=== PATIENT | female | born 1950 | race Caucasian/White ===

== ENCOUNTER 2025-05-09 12:41 | Inpatient (IN) | payer OTHER, MEDICAID ==
[~2025-05-09] VITALS: Ht 167.6 cm; Wt 66.2 kg
--- NOTE | 2025-05-09 13:38 | ED.PDOC ---
History of Present Illness HPI Comments 74 year old female presents to the ED with a chief complaint of pacemaker malfunction onset today (05/09/25). Patient's daughter states she was told by hospice nurse, recommended to bring patient to ED for pacemaker check, HR has been in the 40s. Initially HR was 49 about 5 days ago, today was 40. Patient cu rrently has no complaints. PMHx thyroid disease, pacemaker. Denies fever, chills, nausea, vomiting, diarrhea, chest pain, shortness of breath, dysuria, hematuria. No other symptoms or modifying factors present at this time. Chief Complaint: Abnormal LAB's Time Seen by MD: 13:20 Reviewed Notes: Medications, Allergies Allergies: Coded Allergies: Propoxyphene (Verified Allergy, Unknown, 05/09/25) Information Source: Patient, Relative Mode of Arrival: Wheelchair Severity: Moderate Timing: Days Duration: Since onset Prehospital treatment: None Past Medical History PAST MEDICAL HISTORY: Thyroid Surgical History: Pacemaker MEDICAL DELIVERY TECHNICIAN History: No Pertinent MEDICAL DELIVERY TECHNICIAN History Family History Family History: Unknown Social History Smoker: Non-Smoker Alcohol: Denies ETOH Use Drugs: Denies Drug Use Lives In: Home Constitutional: denies: chills, diaphoresis, fatigue, fever, malaise, sweats, weakness, others EENTM: denies: blurred vision, double vision, ear bleeding, ear discharge, ear drainage, ear pain, ear ringing, eye pain, eye redness, hearing loss, mouth pa in, mouth swelling, nasal discharge, nose bleeding, nose congestion, nose pain, photophobia, tearing, throat pain, throat swelling, voice changes, others Respiratory: denies: cough, hemoptysis, orthopnea, SOB at rest, shortness of breath, SOB with excertion, stridor, wheezing, others Cardiovascular: reports: others (bradycardiac, pacemaker malfunction); denies: chest pain, dizzy spells, diaphoresis, Dyspnea on exertion, edema, irregular heart beat, left arm pain, lightheadedness, palpitations, PND, syncope Gastrointestinal: denies: abdomen distended, abdominal pain, blood streaked bowels, constipated, diarrhea, dysphagia, difficulty swallowing, hematemesis, melena, nausea, poor appetite, poor fluid intake, rectal bleeding, rectal pain, vomiting, others Genitourinary: denies: abnormal vagina bleeding, burning, dyspareunia, dysuria, flank pain, frequency, hematuria, incontinence, pain, , vagina d ischarge, urgency, others Neurological: denies: dizziness, fainting, headache, left sided numbness, left sided weakness, numbness, paresthesia, pre-existing deficit, right sided numbness, right sided weakness, seizure, speech problems, tingling, tremors, weakness, others Musculoskeletal: denies: back pain, gout, joint pain, joint swelling, muscle pain, muscle stiffness, neck pain, others Integumetry: denies: bruises, change in color, change in hair/nails, dryness, laceration, lesions, lumps, rash, wounds, others Allergic/Immunocompromised: denies: Difficulty Healing, Frequent Infections, Hives, Itching, others Hematologic/Lymphatic: denies: anemia, blood clots, easy bleeding, easy bruising, swollen glands, others Endocrine: denies: excessive hunger, excessive sweating, excessive thirst, excessive urination, flushing, intolerance to cold, intolerance to heat, unexplained weight gain, unexplained weight loss, others Psychiatric: denies: anxiety, bipolar disorder, depression, hopeless, panic disorder, schizophrenia, sleepless, suicidal, others All Other Systems: Reviewed and Negative Physical Exam General Appearance: Other (chroniclly ill appearing) HEENT: Normal ENT Inspection, Pharynx Normal, TMs Normal Neck: Full Range of Motion, Non-Tender, Normal, Normal Inspection Respiratory: Chest Non-Tender, Lungs Clear, No Accessory Muscle Use, No Respiratory Distress, Normal Breath Sounds Cardiovascular: No Edema, No JVD, No Murmur, No Gallop, Normal Peripheral Pulses, Regular Rate/Rhythm Breast Exam: Deferred Gastrointestinal: No Organomegaly, Non Tender, No Pulsatile Mass, Normal Bowel Sounds, Soft Genitalia: Deferred Pelvic: Deferred Rectal: Deferred Extremities: No calf tenderness, Normal capillary refill, Normal inspection, Normal range of motion, Non-tender, No pedal edema Musculoskeletal : Apperance: Normal Neurologic: Alert, syruper II-XII nml as Tested, No Motor Deficits, Normal Affect, Normal Mood, No Sensory Deficits Cerebellar Function: Normal Reflexes: Normal Skin: Dry, Normal Color, Warm Lymphatic: No Adenopathy Was a procedure done? Was a procedure done?: No Differential Dx Considerations may include: ACS, CVA, he had onset AFib, electrolyte abnormality, infectious etiology X-Ray, Labs, Meds, VS Vital Signs Date Time Temp Pulse Resp B/P (MAP) Pulse Ox O2 Delivery O2 Flow Rate FiO2 05/09/25 12:56 113 05/09/25 12:49 48 98 104/65 98 Lab Test 05/09/25 15:10 05/09/25 13:55 Range/Units Troponin I High Sensitivity Pending 7 </=34 ng/L White Blood Count 6.6 4.4-10.8 10^3/uL Red Blood Count 4.65 4.0-5.20 10^6/uL Hemoglobin 14.6 12.2-16.2 g/dL Hematocrit 42.9 36.0-46.0 % Mean Corpuscular Volume 92.3 80.0-100.0 fL Mean Corpuscular Hemoglobin 31.4 28.0-32.0 pg Mean Corpuscular Hemoglobin Concent 34.0 32.0-36.0 g/dL Red Cell Distribution Width 13.4 11.8-14.3 % Platelet Count 207 140-450 10^3/uL Mean Platelet Volume 9.7 6.9-10.8 fL Neutrophils (%) (Auto) 73.4 37.0-80.0 % Lymphocytes (%) (Auto) 18.8 10.0-50.0 % Monocytes (%) (Auto) 6.8 0.0-12.0 % Eosinophils (%) (Auto) 0.6 0.0-7.0 % Basophils (%) (Auto) 0.4 0.0-2.0 % Neutrophils # (Auto) 4.8 1.6-8.6 10 ^3/uL Lymphocytes # (Auto) 1.2 0.4-5.4 10 ^3/uL Monocytes # (Auto) 0.5 0-1.3 10 ^3/uL Eosinophils # (Auto) 0 0-0.8 10 ^3/uL Basophils # (Auto) 0 0-0.2 10 ^3/uL Nucleated Red Blood Cells 0.0 % Sodium Level 145 136-145 mmol/L Potassium Level 4.0 3.5-5.1 mmol/L Chloride Level 108 H 98-107 mmol/L Carbon Dioxide Level 26 20-31 mmol/L Anion Gap 11 5-15 Blood Urea Nitrogen 10 9-23 mg/dL Creatinine 0.62 0.550-1.02 mg/dL Glomerular Filtration Rate Calc 93 >90 mL/min BUN/Creatinine Ratio 16.1 10.0-20.0 Serum Glucose 86 74-106 mg/dL Calcium Level 9.6 8.7-10.4 mg/dL B-Type Natriuretic Peptide 48.54 0-100 pg/mL Time of 1ST Reevaluation: 13:50 Reevaluation 1ST: Unchanged Patient Education/Counseling: Diagnosis, Treatment, Prognosis Family Education/Counseling: Diagnosis, Treatment, Prognosis SEPSIS Sepsis Screen Date sepsis recognized/suspect: May 09, 2025 Time Sepsis recognized/suspect: 9 Recent Procedure: No On Antibiotic Therapy: No Respiratory Rate >20: No Heart Rate >90: Yes Temp<36 C (96.8 F) or >38.3 C: No SBP <90 or MAP <65 mmHG: No New Acute Mental Status Change: No Is the patient on CPAP, BIPAP,: No Physician Orders Electrocardigram (05/09/25 13:34) Urinalysis (05/09/25 13:37) Chest Portable (05/09/25 13:37) Troponin-I Hs (05/09/25 14:37) Troponin-I Hs (05/09/25 16:37) Electrocardigram (05/09/25 14:37) Electrocardigram (05/09/25 16:37) Hydrocodone-Acet 5/325mg Tab ([place] 5/32 (05/09/25 16:00) Vital Signs Date Time Temp Pulse Resp B/P (MAP) Pulse Ox O2 Delivery O2 Flow Rate FiO2 05/09/25 12:56 113 05/09/25 12:49 48 98 104/65 98 Laboratory Tests Test 05/09/25 13:55 White Blood Count 6.6 10^3/uL (4.4-10.8) Departure 1 Departure Time of Disposition: 15:53 (Patient with concern for pacemaker malfunction. We will admit patient for further workup and expert consultation) Impression: Primary Impression: Generalized weakness Additional Impression: Pacemaker Disposition: 09 ADMITTED INPATIENT Admit to: Tele Condition: Guarded Critical Care Note Critical Care Time?: No Stability Stability form required: No I personally scribed for JOSE BURNS MD ([email or web address]) on 05/09/25 at 13:38. Electronically submitted by Nohelia Vee ([email or web address]). JOSE BURNS MD May 09, 2025 13:38
[2025-05-09 14:08] LABS: Hematocrit 42.9 % (36.0-46.0); Hemoglobin 14.6 g/dL (12.2-16.2); Mean Corpuscular Hemoglobin 31.4 pg (28.0-32.0); Mean Corpuscular Volume 92.3 fL (80.0-100.0); Nucleated Red Blood Cells % 0.0 %
[2025-05-09 14:15] LABS: Potassium 4.0 mmol/L (3.5-5.1)
[2025-05-09 14:16] LABS: Anion Gap 11 (5-15); Calcium 9.6 mg/dL (8.7-10.4); Carbon Dioxide 26 mmol/L (20-31)
[2025-05-09 14:17] LABS: Chloride 108 mmol/L (98-107); Sodium 145 mmol/L (136-145)
[2025-05-09 14:21] LABS: BUN/Creatinine Ratio 16.1 (10.0-20.0); Blood Urea Nitrogen 10 mg/dL (9-23); Glucose 86 mg/dL (74-106)
--- NOTE | 2025-05-09 14:45 | DVH ---
CHEST RADIOGRAPH Indication: weakness, Technique: Single frontal view of the chest was obtained COMPARISON: None FINDINGS: Lines and Tubes: Left chest pacemaker Lungs: Clear Pleura: No effusion. No pneumothorax. Cardiomediastinal contours: Unremarkable Bones: Unremarkable IMPRESSION: No acute disease.
[2025-05-09] MEDS: HYDROcodone-ACET 5/325MG TAB PO ONE (15:57)
[2025-05-09] MEDS ORDERED: NITROGLYCERIN 0.4 MG SL TAB SL PRN (20:00)
[2025-05-09] MEDS ORDERED: MORPHINE SULFATE INJ 2 MG/ml SYRG IV PRN (20:00)
--- NOTE | 2025-05-09 20:20 | ECG ---
[facility] Test Date: 2025-05-09 Test Time: 12:56:41 Pat Name: WOLFGANG MERAZ Department: ED Room: 0276T Gender: F Direct Support Staff Member: KEZIA : 1950 Requested By: JOSE BURNS Order Number: [id number] Reading MD: Socrates Wright Measurements Intervals [place] Rate: 113 P: 0 GA: 196 QRS: 80 QRSD: 111 T: 261 QT: 390 QTc: 535 Interpretive Statements Ventricular-paced complexes No further rhythm analysis attempted due to paced rhythm Nonspecific repol abnormality, diffuse leads Prolonged QT interval Artifact in lead(s) II,aVL,aVF,V1,V2 Electronically Signed On 05-10-2025 15:40:09 PDT by Socrates Wright Please click the below link to view image of tracing.
[2025-05-09] MEDS ORDERED: ONDANSETRON HCL 4 MG/2 ML VIAL IV PRN (21:30)
--- NOTE | 2025-05-09 21:35 | DVHHP2 ---
History of Present Illness Reason for Visit: Generalized weakness History of Present Illness 74-year-old female presents for evaluation of generalized weakness. Patient is accompanied by her daughter. Patient with a history of CVA nonverbal. Daughter reports patient becoming progressively weaker and more fatigued over the past one-week. Patient is currently on hospice due to CVA. Nurse noted patient heart rate being in the 40s today. Patient does have a pacemaker. In the emergency department her heart rate has been fluctuating from 40s to low 100s. Past Medical History CVA, thyroid Past Surgical History Pacemaker Family History Noncontributory Smoke: No ALCOHOL: none Drugs: None Lives: with Family Review of Systems Review of Systems Review of systems are limited due to the patient's altered mental status. Allergies: Coded Allergies: Propoxyphene (Verified Allergy, Unknown, 05/09/25) Medications Current Medications Medications Dose Ordered Sig/Ethan Route Start Time Stop Time Status Last Admin Dose Admin Nitroglycerin 0.4 mg Q5MINP PRN SL 05/09/25 20:00 Morphine Sulfate 2 mg Q30M PRN IV 05/09/25 20:00 Exam Vital Signs Vital Signs Date Time Temp Pulse Resp B/P (MAP) Pulse Ox O2 Delivery O2 Flow Rate FiO2 05/09/25 12:56 113 05/09/25 12:49 98 104/65 98 Exam Gen: 74-year-old female in mild distress. Skin: Warm, dry, normal color and texture, no rash. HEENT: Normocephalic atraumatic, mucous membranes moist and pink. Neck: Cervical and supraclavicular nodes normal without enlargement, trachea is midline, thyroid gland is normal without masses. Pulmonary: Clear to auscultation and percussion bilaterally. Cardiac: Sinus bradycardia to sinus tach Abdomen: Soft, nontender, nondistended, bowel sounds present all 4 quadrants, no guarding, no rigidity, no organomegaly. Extremities: No cyanosis, clubbing, no edema Neuro: Cranial nerves II through XII grossly intact, normal affect and speech, no focal motor deficits. Labs/Xrays ORDERING PHYSICIAN: JOSE BURNS MD PROCEDURE(s): CXRP - CHEST PORTABLE REASON: weakness, ORDER NUMBER(s): [id number], ACCESSION NUMBER(s): [id number] CHEST RADIOGRAPH Indication: weakness, Technique: Single frontal view of the chest was obtained COMPARISON: None FINDINGS: Lines and Tubes: Left chest pacemaker Lungs: Clear Pleura: No effusion. No pneumothorax. Cardiomediastinal contours: Unremarkable Bones: Unremarkable IMPRESSION: No acute disease. Labs Test 05/09/25 16:53 05/09/25 13:55 Range/Units Troponin I High Sensitivity 7 </=34 ng/L White Blood Count 6.6 4.4-10.8 10^3/uL Red Blood Count 4.65 4.0-5.20 10^6/uL Hemoglobin 14.6 12.2-16.2 g/dL Hematocrit 42.9 36.0-46.0 % Mean Corpuscular Volume 92.3 80.0-100.0 fL Mean Corpuscular Hemoglobin 31.4 28.0-32.0 pg Mean Corpuscular Hemoglobin Concent 34.0 32.0-36.0 g/dL Red Cell Distribution Width 13.4 11.8-14.3 % Platelet Count 207 140-450 10^3/uL Mean Platelet Volume 9.7 6.9-10.8 fL Neutrophils (%) (Auto) 73.4 37.0-80.0 % Lymphocytes (%) (Auto) 18.8 10.0-50.0 % Monocytes (%) (Auto) 6.8 0.0-12.0 % Eosinophils (%) (Auto) 0.6 0.0-7.0 % Basophils (%) (Auto) 0.4 0.0-2.0 % Neutrophils # (Auto) 4.8 1.6-8.6 10 ^3/uL Lymphocytes # (Auto) 1.2 0.4-5.4 10 ^3/uL Monocytes # (Auto) 0.5 0-1.3 10 ^3/uL Eosinophils # (Auto) 0 0-0.8 10 ^3/uL Basophils # (Auto) 0 0-0.2 10 ^3/uL Nucleated Red Blood Cells 0.0 % Sodium Level 145 136-145 mmol/L Potassium Level 4.0 3.5-5.1 mmol/L Chloride Level 108 H 98-107 mmol/L Carbon Dioxide Level 26 20-31 mmol/L Anion Gap 11 5-15 Blood Urea Nitrogen 10 9-23 mg/dL Creatinine 0.62 0.550-1.02 mg/dL Glomerular Filtration Rate Calc 93 >90 mL/min BUN/Creatinine Ratio 16.1 10.0-20.0 Serum Glucose 86 74-106 mg/dL Calcium Level 9.6 8.7-10.4 mg/dL B-Type Natriuretic Peptide 48.54 0-100 pg/mL SEPSIS Sepsis Screen Date sepsis recognized/suspect: May 09, 2025 Time Sepsis recognized/suspect: 1248 Recent Procedure: No On Antibiotic Therapy: No Respiratory Rate >20: No Heart Rate >90: Yes Temp<36 C (96.8 F) or >38.3 C: No SBP <90 or MAP <65 mmHG: No New Acute Mental Status Change: No Is the patient on CPAP, BIPAP,: No Physician Orders Urinalysis (05/09/25 13:37) Chest Portable (05/09/25 13:37) Electrocardigram (05/09/25 14:37) Electrocardigram (05/09/25 16:37) Admit (05/09/25 19:51) Nitroglycerin Sublingual (Ntrostat Subli (05/09/25 20:00) Morphine Sulfate Injection (05/09/25 20:00) Stat Ekg For Chest Pain (05/09/25 19:51) Notify Md Of Changes From Base (05/09/25 19:51) Dye Mixer For 24 Hours (05/09/25 19:51) Emergency Dysrhythmia Protocol (05/09/25 19:51) Rhythm Strips Once Every Shift (05/09/25 19:51) Oxygen By Nasal Cannula (05/09/25 19:51) Thyroid Stimulating Hormone (05/09/25 21:27) Basic Metabolic Panel (05/10/25 04:00) Ondansetron Hcl (Zofran) (05/09/25 21:30) Enoxaparin Sodium (Lovenox) (05/10/25 10:00) Complete Blood Count (05/10/25 04:00) Cardiac Diet-2gna,Lofat,Lochol (05/10/25 Breakfast) Echo 2d Mode Cardiac Dop (05/09/25 21:27) Condition: Fair (05/09/25 21:27) Acetaminophen Tablet (Tylenol Tablet) (05/09/25 21:30) Maintain Bed Rest (05/09/25 21:27) Sequential Compression Device (05/09/25 ) Laboratory Tests Test 05/09/25 13:55 White Blood Count 6.6 10^3/uL (4.4-10.8) Medications Medications Dose Ordered Sig/Ethan Route Start Time Stop Time Status Last Admin Dose Admin Acetaminophen/ Hydrocodone Bitart 1 tab ONCE ONCE PO 05/09/25 16:00 05/09/25 16:01 DC 05/09/25 15:57 1 TAB Assessment/Plan Assessment/Plan Assessment Symptomatic bradycardia ? Pacemaker malfunction History of CVA Nonverbal Bed ridden Plan Admit the patient to telemetry to the hospitalist Cardiology consultation Echocardiogram pending Continue treatment per orders. Plan discussed with: Daughter My Orders Orders - AIMEE THOMAS Procedure Category Date Status Time Admit ADMIT 05/09/25 Transmitted 19:51 Nitroglycerin PHA 05/09/25 In Process Sublingual (Ntrostat 20:00 Morphine Sulfate PHA 05/09/25 In Process Injection 20:00 Stat Ekg For Chest ADRIANO 05/09/25 In Process Pain 19:51 Notify Md Of Changes [facility] 05/09/25 In Process From Base 19:51 Dye Mixer For [facility] 05/09/25 In Process 24 Hours 19:51 Emergency Dysrhythmia [facility] 05/09/25 In Process Protocol 19:51 Rhythm Strips Once [facility] 05/09/25 In Process Every Shift 19:51 Oxygen By Nasal RT 05/09/25 Transmitted Cannula 19:51 Thyroid Stimulating LAB 05/09/25 Verified Hormone 21:27 Basic Metabolic Panel LAB 05/10/25 Verified 04:00 Ondansetron Hcl PHA 05/09/25 Verified (Zofran) 21:30 Enoxaparin Sodium PHA 05/10/25 Verified (Lovenox) 10:00 Complete Blood Count LAB 05/10/25 Verified 04:00 Cardiac DIET 05/10/25 Verified Diet-2gna,Lofat,Lochol Breakfast Echo 2d Mode Cardiac US 05/09/25 Verified DOP 21:27 Condition: Fair ADRIANO 05/09/25 Verified 21:27 Acetaminophen Tablet PHA 05/09/25 Verified (Tylenol Tablet) 21:30 Maintain Bed Rest ADRIANO 05/09/25 Verified 21:27 Sequential ADRIANO 05/09/25 Verified Compression Device Date of Service: May 09, 2025 Billing Provider: AIMEE THOMAS Common Visit Codes: [id number] INP/OBS CARE (HIGH) AIMEE THOMAS May 09, 2025 21:35
[2025-05-09 23:48] VITALS: PULSE 96; RESP 18; O2SAT 100
[2025-05-10] VITALS (7 sets, daily range): BP systolic 106–125; BP diastolic 67–88; PULSE 50–94; RESP 14–20; TEMP 97–98.8; O2SAT 93–100
[2025-05-10 05:37] LABS: Hematocrit 37.7 % (36.0-46.0); Hemoglobin 12.8 g/dL (12.2-16.2); Mean Corpuscular Hemoglobin 31.3 pg (28.0-32.0); Mean Corpuscular Volume 92.1 fL (80.0-100.0); Nucleated Red Blood Cells % 0.1 %
[2025-05-10 05:49] LABS: Potassium 3.9 mmol/L (3.5-5.1)
[2025-05-10 05:50] LABS: Anion Gap 11 (5-15); Carbon Dioxide 26 mmol/L (20-31)
[2025-05-10 05:51] LABS: Calcium 9.0 mg/dL (8.7-10.4); Chloride 108 mmol/L (98-107); Sodium 145 mmol/L (136-145)
[2025-05-10 05:56] LABS: BUN/Creatinine Ratio 18.2 (10.0-20.0); Blood Urea Nitrogen 12 mg/dL (9-23); Glucose 90 mg/dL (74-106)
[2025-05-10] MEDS: ENOXAPARIN SOD 40 MG/0.4 ML SYRINGE SC SCH (09:58)
--- NOTE | 2025-05-10 17:14 | DVHSR ---
APPROVED REPORT EXAM: Two-dimensional and M-mode echocardiogram with Doppler and color Doppler. Blood Pressure: 113/65 mmHg INDICATION Bradycardia RISK FACTORS Height: 66, Weight: 123 DIMENSIONS LVDd4.0 (3.8-5.7cm)LA (2D) (1.9-4.0cm)Aortic Root4.1 (2.0-3.7cm) LVDs2.9 (2.5-4.0cm)LA (MM) (1.9-4.0cm)Aortic Cusp Exc1.9 (1.5-2.0cm) EF (%) 55.0 (55-70%)Rt. Atrium (1.9-4.0cm)Asc. Aorta cm Mitral Valve MitralMitral Stenosis E/A ratio0.02D MVAcm2 Aortic Valve Aortic ValveAortic Stenosis LVOT Diameter2.4 (1.8-2.4cm)Doppler AVAcm2 Tricuspid Valve TR Velocity2.68m/s [id number] Other Information Technically limited study due to body habitus and patient position. Limited apicals. 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
--- NOTE | 2025-05-10 17:32 | DVHPN2 ---
Subjective Patient is seen at bedside, daughter at bedside, patient remains at her best baseline Reviewed: H&P Changes from previous H/P or p: No Changes General: Per HPI Objective Vitals Vital Signs Date Time Temp Pulse Resp B/P (MAP) Pulse Ox O2 Delivery O2 Flow Rate FiO2 05/10/25 16:40 98.8 64 14 106/70 (82) 93 98.8 05/10/25 08:00 Room Air* 0 21 Intake/Output Intake and Output 05/10/25 07:00 Intake Total 120 ml Balance 120 ml Intake Oral 120 ml # Voids 1 Exam Gen: 74-year-old female in mild distress. Skin: Warm, dry, normal color and texture, no rash. HEENT: Normocephalic atraumatic, mucous membranes moist and pink. Neck: Cervical and supraclavicular nodes normal without enlargement, trachea is midline, thyroid gland is normal without masses. Pulmonary: Clear to auscultation and percussion bilaterally. Cardiac: Sinus bradycardia to sinus tach Abdomen: Soft, nontender, nondistended, bowel sounds present all 4 quadrants, no guarding, no rigidity, no organomegaly. Extremities: No cyanosis, clubbing, no edema Neuro: Patient is nonverbal at baseline, can give thumbs up thumbs down for responses, contracted throughout, Medications Current Medications Medications Dose Ordered Sig/Ethan Route Start Time Stop Time Status Last Admin Dose Admin Nitroglycerin 0.4 mg Q5MINP PRN SL 05/09/25 20:00 Morphine Sulfate 2 mg Q30M PRN IV 05/09/25 20:00 Ondansetron HCl 4 mg Q4HP PRN IV 05/09/25 21:30 Enoxaparin Sodium 40 mg DAILY SC 05/10/25 10:00 05/10/25 09:58 40 MG Acetaminophen 650 mg Q6HP PRN PO 05/09/25 21:30 Laboratory Results Laboratory Tests 05/10/25 04:41 Chemistry Test 05/10/25 04:41 Calcium Level 9.0 mg/dL (8.7-10.4) Labs and/or images reviewed: Labs reviewed by me, Image(s) reviewed by me Assessment/Plan Assessment/Plan 74-year-old female presents for evaluation of generalized weakness. Patient is accompanied by her daughter. Patient with a history of CVA nonverbal. Daughter reports patient becoming progressively weaker and more fatigued over the past one-week. Patient is currently on hospice due to CVA. Nurse noted patient heart rate being in the 40s today. Patient does have a pacemaker. In the emergency department her heart rate has been fluctuating from 40s to low 100s. 05/10: Patient remains at her baseline, daughter at bedside concern that hospice patient's C was noticing her heart rate dropped from 100s to 40s. There was apparently assessment of pacemaker done in the ER, currently if report is missing. We will do another assessment to get report, we will consult Cardiology to complete evaluation. We will order COVID/flu, TSH. Reassess tomorrow morning, continue diet puree. Bradycardia, history of pacemaker Pacemaker, concern for defect ALOC Revoked hospice status Generalized weakness History of CVA Nonverbal Bed ridden Plan: Eval pacemaker, interrogation. Cardiology to complete evaluation. We will order COVID/flu, TSH. continue diet puree. Tele Full code Plan discussed with: Patient My Orders Orders - MIHAELA MORRIS MD Procedure Category Date Status Time Coupling Machine Operator To Assess ORDERS 05/10/25 Transmitted Pacemaker 13:36 Covid19 Antigen [place] LAB 05/10/25 Logged Rapid Influenza A&B LAB 05/10/25 Logged 13:36 Free T4 (Free LAB 05/11/25 Verified Thyroxine) 04:00 Date of Service: May 10, 2025 Billing Provider: MIHAELA MORRIS MD Common Visit Codes: [id number] INP/OBS CARE(HIGH) MIHAELA MORRIS MD May 10, 2025 17:32
[2025-05-10] MEDS ORDERED: LORazepam 0.5 MG TAB PO PRN (18:30)
[2025-05-10 21:38] LABS: COVID19 ANTIGEN SOFIA FIA NEGATIVE (NEGATIVE)
[2025-05-11] VITALS (8 sets, daily range): BP systolic 112–132; BP diastolic 66–88; PULSE 79–106; RESP 14–20; TEMP 97.8–98.6; O2SAT 96–100
--- NOTE | 2025-05-11 00:55 | DVHINCON2 ---
Date of service: May 10, 2025 Referring Physician Brynn Reason for Consultation Pacemaker malfunction History of Present Illness This is a 74 year old female who presented to the ED with complaints of pacemaker malfunction on 05/09/25. Patient's daughter states she was told by hospice nurse, recommended to bring patient to ED for pacemaker check. The patients HR has been in the 40s. Initially HR was 49 about 5 days ago, on day of admission was 40. Patient currently has no complaints. EKG showed tachycardia at 113. CBC and chemistry are unremarkable. Troponin is negative. Chest x-ray showed NAD. Viral swabs are negative. Patient was admitted to the hospital. I am asked to consult on this patient. Family History: Patient reports no known family medical history. Allergies: Coded Allergies: Propoxyphene (Verified Allergy, Unknown, 05/09/25) Current Medications Current Medications Medications (Trade) Dose Ordered Sig/Ethan Route PRN Reason Start Time Stop Time Status Last Admin Enoxaparin Sodium (Lovenox) 40 mg DAILY SC 05/10/25 10:00 05/10/25 09:58 Quetiapine Fumarate (SEROquel TABLET) 50 mg HS PO 05/10/25 22:00 Hold Lorazepam (Ativan Tablet) 2 mg Q6HP PRN PO ANXIETY 05/10/25 18:30 Review of Systems Constitutional: denies: chills, diaphoresis, fatigue, fever, malaise, sweats, weakness, others EENTM: denies: blurred vision, double vision, ear bleeding, ear discharge, ear drainage, ear pain, ear ringing, eye pain, eye redness, hearing loss, mouth pain, mouth swelling, nasal discharge, nose bleeding, nose congestion, nose pain, photophobia, tearing, throat pain, throat swelling, voice changes, others Respiratory: denies: cough, hemoptysis, orthopnea, SOB at rest, shortness of breath, SOB with excertion, stridor, wheezing, others Cardiovascular: reports: others (bradycardiac, pacemaker malfunction); denies: chest pain, dizzy spells, diaphoresis, Dyspnea on exertion, edema, irregular heart beat, left arm pain, lightheadedness, palpitations, PND, syncope Gastrointestinal: denies: abdomen distended, abdominal pain, blood streaked bowels, constipated, diarrhea, dysphagia, difficulty swallowing, hematemesis, melena, nausea, poor appetite, poor fluid intake, rectal bleeding, rectal pain, vomiting, others Genitourinary: denies: abnormal vagina bleeding, burning, dyspareunia, dysuria, flank pain, frequency, hematuria, incontinence, pain, , vagina discharge, urgency, others Neurological: denies: dizziness, fainting, headache, left sided numbness, left sided weakness, numbness, paresthesia, pre-existing deficit, right sided numbness, right sided weakness, seizure, speech problems, tingling, tremors, weakness, others Musculoskeletal: denies: back pain, gout, joint pain, joint swelling, muscle pain, muscle stiffness, neck pain, others Integumetry: denies: bruises, change in color, change in hair/nails, dryness, laceration, lesions, lumps, rash, wounds, others Allergic/Immunocompromised: denies: Difficulty Healing, Frequent Infections, Hives, Itching, others Hematologic/Lymphatic: denies: anemia, blood clots, easy bleeding, easy b ruising, swollen glands, others Endocrine: denies: excessive hunger, excessive sweating, excessive thirst, excessive urination, flushing, intolerance to cold, intolerance to heat, unexplained weight gain, unexplained weight loss, others Psychiatric: denies: anxiety, bipolar disorder, depression, hopeless, panic disorder, schizophrenia, sleepless, suicidal, others All Other Systems: Reviewed and Negative Vital Signs Vital Signs Date Time Temp Pulse Resp B/P (MAP) Pulse Ox O2 Delivery O2 Flow Rate FiO2 05/10/25 21:00 98.7 88 20 120/87 (98) 97 98.7 05/10/25 20:00 Nasal Cannula* 2 28 Physical Exam GENERAL: Alert and oriented x 3. Chronically ill appearing. EYES: PERRL, EOMI. Anicteric. HENT: Moist mucous membranes. LUNGS: Clear to auscultation bilaterally. CARDIOVASCULAR: Regular rate and rhythm. ABDOMEN: Soft, non-tender and non-distended. EXTREMITIES: No edema. NEUROLOGIC: No focal neurological deficits. SKIN: Warm, dry. Labs/Diagnostic Data Labs Test 05/10/25 13:36 05/10/25 04:41 05/10/25 00:00 05/09/25 16:53 Range/Units Influenza Type A Antigen Negative Negative Influenza Type B Antigen Negative Negative White Blood Count 7.5 4.4-10.8 10^3/uL Red Blood Count 4.09 4.0-5.20 10^6/uL Hemoglobin 12.8 12.2-16.2 g/dL Hematocrit 37.7 # 36.0-46.0 % Mean Corpuscular Volume 92.1 80.0-100.0 fL Mean Corpuscular Hemoglobin 31.3 28.0-32.0 pg Mean Corpuscular Hemoglobin Concent 34.0 32.0-36.0 g/dL Red Cell Distribution Width 13.1 11.8-14.3 % Platelet Count 179 140-450 10^3/uL Mean Platelet Volume 9.8 6.9-10.8 fL Neutrophils (%) (Auto) 80.7 H 37.0-80.0 % Lymphocytes (%) (Auto) 13.1 10.0-50.0 % Monocytes (%) (Auto) 5.7 0.0-12.0 % Eosinophils (%) (Auto) 0.1 0.0-7.0 % Basophils (%) (Auto) 0.4 0.0-2.0 % Neutrophils # (Auto) 6.0 1.6-8.6 10 ^3/uL Lymphocytes # (Auto) 1.0 0.4-5.4 10 ^3/uL Monocytes # (Auto) 0.4 0-1.3 10 ^3/uL Eosinophils # (Auto) 0 0-0.8 10 ^3/uL Basophils # (Auto) 0 0-0.2 10 ^3/uL Nucleated Red Blood Cells 0.1 % Sodium Level 145 136-145 mmol/L Potassium Level 3.9 3.5-5.1 mmol/L Chloride Level 108 H 98-107 mmol/L Carbon Dioxide Level 26 20-31 mmol/L Anion Gap 11 5-15 Blood Urea Nitrogen 12 9-23 mg/dL Creatinine 0.66 0.550-1.02 mg/dL Glomerular Filtration Rate Calc 91 >90 mL/min BUN/Creatinine Ratio 18.2 10.0-20.0 Serum Glucose 90 74-106 mg/dL Calcium Level 9.0 8.7-10.4 mg/dL SARS-CoV-2 Antigen (Rapid) Negative NEGATIVE Troponin I High Sensitivity 7 </=34 ng/L Test 05/09/25 13:55 Range/Units B-Type Natriuretic Peptide 48.54 0-100 pg/mL Thyroid Stimulating Hormone (TSH) 0.19 L 0.55-4.78 uIU/mL Assessment Symptomatic bradycardia. ? Pacemaker malfunction. History of CVA. Nonverbal. Bed ridden. Plan/Recommendation I agree with your ongoing assessment and care of plan. Echocardiogram. DVT prophylactics. Morphine for pain management. Nitro SL. Additional plan as per the hospital course. A total of 45 minutes was spent reviewing the patient record, examining the patient, making a diagnostic and therapeutic plan, discussing this plan with medical personnel, following up on diagnostic studies and following the patient for clinical stability excluding any and all procedures. At least 50% of this time was spent in direct, [id number] contact. Plan discussed with: Patient DAWN BERGMAN MD May 11, 2025 00:55
[2025-05-11 07:14] LABS: Hematocrit 36.2 % (36.0-46.0); Hemoglobin 12.3 g/dL (12.2-16.2); Mean Corpuscular Hemoglobin 31.4 pg (28.0-32.0); Mean Corpuscular Volume 92.2 fL (80.0-100.0); Nucleated Red Blood Cells % 0.1 %
[2025-05-11 07:31] LABS: Alanine Aminotransferase 12 U/L (7-40); Albumin 3.5 g/dL (3.2-4.8); Alkaline Phosphatase 56 U/L (46-116); Anion Gap 11 (5-15); BUN/Creatinine Ratio 12.9 (10.0-20.0); Carbon Dioxide 25 mmol/L (20-31); Glucose 91 mg/dL (74-106); Sodium 143 mmol/L (136-145)
[2025-05-11 07:32] LABS: Bilirubin, Total 0.7 mg/dL (0.2-1.0)
[2025-05-11 07:38] LABS: Blood Urea Nitrogen 8 mg/dL (9-23); Calcium 8.7 mg/dL (8.7-10.4); Chloride 107 mmol/L (98-107); Potassium 3.5 mmol/L (3.5-5.1); Total Protein 5.6 g/dL (5.7-8.2)
[2025-05-11 09:14] LABS: Urine Protein, UAD TRACE (Negative)
[2025-05-11] MEDS: ACETAMINOPHEN 325 MG TAB PO PRN (14:45)
[2025-05-11] MEDS ORDERED: LACTATED RINGER'S 1,000 ML IV SCH (15:15)
[2025-05-11] MEDS: LACTATED RINGER'S 250 ML IV ONE (15:30)
[2025-05-11] MEDS: LACTATED RINGER'S 1,000 ML IV ONE (16:15)
--- NOTE | 2025-05-11 16:38 | DVHPN2 ---
Subjective Patient is seen at bedside, daughter at bedside, patient remains at her best baseline Reviewed: H&P Changes from previous H/P or p: No Changes General: Per HPI Objective Vitals Vital Signs Date Time Temp Pulse Resp B/P (MAP) Pulse Ox O2 Delivery O2 Flow Rate FiO2 05/11/25 08:00 90 14 100 Nasal Cannula* 2 28 05/11/25 05:00 97.8 122/88 (99) 97.8 Intake/Output Intake and Output 05/11/25 07:00 Intake Total 0 ml Balance 0 ml Intake Oral 0 ml # Voids 3 Exam Gen: 74-year-old female in mild distress. Skin: Warm, dry, normal color and texture, no rash. HEENT: Normocephalic atraumatic, mucous membranes moist and pink. Neck: Cervical and supraclavicular nodes normal without enlargement, trachea is midline, thyroid gland is normal without masses. Pulmonary: Clear to auscultation and percussion bilaterally. Cardiac: Sinus bradycardia to sinus tach Abdomen: Soft, nontender, nondistended, bowel sounds present all 4 quadrants, no guarding, no rigidity, no organomegaly. Extremities: No cyanosis, clubbing, no edema Neuro: Patient is nonverbal at baseline, can give thumbs up thumbs down for responses, contracted throughout, Medications Current Medications Medications Dose Ordered Sig/Ethan Route Start Time Stop Time Status Last Admin Dose Admin Nitroglycerin 0.4 mg Q5MINP PRN SL 05/09/25 20:00 Morphine Sulfate 2 mg Q30M PRN IV 05/09/25 20:00 Ondansetron HCl 4 mg Q4HP PRN IV 05/09/25 21:30 Enoxaparin Sodium 40 mg DAILY SC 05/10/25 10:00 05/10/25 09:58 40 MG Acetaminophen 650 mg Q6HP PRN PO 05/09/25 21:30 05/11/25 14:45 650 MG Quetiapine Fumarate 50 mg HS PO 05/10/25 22:00 Hold Lorazepam 2 mg Q6HP PRN PO 05/10/25 18:30 Laboratory Results Laboratory Tests 05/11/25 06:39 Chemistry Test 05/11/25 06:39 Albumin 3.5 g/dL (3.2-4.8) Calcium Level 8.7 mg/dL (8.7-10.4) Total Protein 5.6 g/dL (5.7-8.2) L LFT Test 05/11/25 06:39 Alanine Aminotransferase (ALT) 12 U/L (7-40) Alkaline Phosphatase 56 U/L (46-116) Aspartate Amino Transferase (AST) 18 U/L (13-40) Total Bilirubin 0.7 mg/dL (0.2-1.0) Urinalysis Test 05/10/25 23:00 Urine Color Yellow (Yellow) Urine Clarity Clear (Clear) Urine pH 5.5 (5.0-9.0) Urine Specific [place] 1.031 (1.001-1.035) Urine Protein Trace (Negative) H Urine Ketones 2+ (Negative) H Urine Blood Negative /uL (Negative) Urine Nitrite Negative (Negative) Urine Bilirubin Negative (Negative) Urine Urobilinogen Normal mg/dL (Negative) Urine Leukocyte Esterase Trace /uL (Negative) Urine RBC 4 /hpf (0 - 4) Urine Microscopic WBC 5 /HPF (0-5) Urine Squamous Epithelial Cells Mod /hpf (<5) Urine Bacteria None seen /hpf (None Seen) Urine Mucus Few (None Seen) Urine Glucose Normal mg/dL (Normal) Labs and/or images reviewed: Labs reviewed by me, Image(s) reviewed by me Assessment/Plan Assessment/Plan 74-year-old female presents for evaluation of generalized weakness. Patient is accompanied by her daughter. Patient with a history of CVA nonverbal. Daughter reports patient becoming progressively weaker and more fatigued over the past one-week. Patient is currently on hospice due to CVA. Nurse noted patient heart rate being in the 40s today. Patient does have a pacemaker. In the emergency department her heart rate has been fluctuating from 40s to low 100s. 05/10: Patient remains at her baseline, daughter at bedside concern that hospice patient's C was noticing her heart rate dropped from 100s to 40s. There was apparently assessment of pacemaker done in the ER, currently if report is missing. We will do another assessment to get report, we will consult Cardiology to complete evaluation. We will order COVID/flu, TSH. Reassess tomorrow morning, continue diet puree. 05/11: [employer] rep, at bedside, has optimized the pacemaker settings, capture is much improved. It is appearing lead malfunction is possibly less likely, and perhaps the pacemaker needed optimization only. We will monitor for another 24 hours for any bradycardia or pacemaker dysfunction. If stable patient should be stable to go back to hospice as family plans. Today we will give 250 cc bolus as patient has been NPO, restart pureed diet, continue 50 cc LR 50 cc/hour for total 1 L. Diagnosis: Bradycardia, history of pacemaker Pacemaker, concern for defect ALOC Revoked hospice status Generalized weakness History of CVA Nonverbal Bed ridden Plan: Eval pacemaker, interrogation. Cardiology to complete evaluation. We will order COVID/flu, TSH. continue diet puree. Tele Full code Plan discussed with: Patient My Orders Orders - MIHAELA MORRIS MD Procedure Category Date Status Time Quetiapine Fumarate PHA 05/10/25 In Process Tablet (Seroquel Tab 22:00 Lorazepam Tablet PHA 05/10/25 In Process (Ativan Tablet) 18:30 * Cardiology Consult CONS 05/10/25 Transmitted 18:33 * Swallow Request ST 05/11/25 Transmitted 00:21 Pureed DIET 05/11/25 Transmitted Lunch Lactated Ringer's PHA 05/11/25 Logged 16:15 Date of Service: May 11, 2025 Billing Provider: MIHAELA MORRIS MD Common Visit Codes: [id number] INP/OBS CARE(HIGH) MIHAELA MORRIS MD May 11, 2025 16:38
--- NOTE | 2025-05-11 21:35 | DVHPN2 ---
Progress Note - Dictate Date Seen: May 11, 2025 Medical Necessity Reason Pt with a Central, PICC or Fol: No Subjective Patient was seen and evaluated in follow up. Patient resting in bed with family at bedside. Patient's HR fluctuates between the 50's-100's. Pending pacemaker interrogation. Echocardiogram is pending. Telemetry reviewed. vital signs Vital Sign Date Time Temp Pulse Resp B/P (MAP) Pulse Ox O2 Delivery O2 Flow Rate FiO2 05/11/25 08:00 90 14 100 Nasal Cannula* 2 28 05/11/25 05:00 97.8 122/88 (99) 97.8 Total Intake and Output 05/10/25 05/10/25 05/11/25 15:00 23:00 07:00 Intake Total 0 ml Balance 0 ml medications Current Medications Medications Dose Ordered Sig/Ethan Route Start Time Stop Time Status Last Admin Dose Admin Nitroglycerin 0.4 mg Q5MINP PRN SL 05/09/25 20:00 Morphine Sulfate 2 mg Q30M PRN IV 05/09/25 20:00 Ondansetron HCl 4 mg Q4HP PRN IV 05/09/25 21:30 Enoxaparin Sodium 40 mg DAILY SC 05/10/25 10:00 05/10/25 09:58 40 MG Acetaminophen 650 mg Q6HP PRN PO 05/09/25 21:30 Quetiapine Fumarate 50 mg HS PO 05/10/25 22:00 Hold Lorazepam 2 mg Q6HP PRN PO 05/10/25 18:30 objective GENERAL: Alert and oriented x 3. Chronically ill appearing. EYES: PERRL, EOMI. Anicteric. HENT: Moist mucous membranes. LUNGS: Clear to auscultation bilaterally. CARDIOVASCULAR: Regular rate and rhythm. ABDOMEN: Soft, non-tender and non-distended. EXTREMITIES: No edema. NEUROLOGIC: No focal neurological deficits. SKIN: Warm, dry. laboratory and microbiology Laboratory Tests 05/11/25 06:39 Test 05/11/25 06:39 Range/Units Serum Glucose 91 74-106 mg/dL Problem List Symptomatic bradycardia. ? Pacemaker malfunction. History of CVA. Nonverbal. Bed ridden. Assessment/Plan Continued all current supportive medical care. Morphine for pain management. Nitro SL. Additional plan as per the hospital course. Plan discussed with: Patient DAWN BERGMAN MD May 11, 2025 14:40
[2025-05-12] VITALS (9 sets, daily range): BP systolic 101–123; BP diastolic 60–75; PULSE 46–104; RESP 16–19; TEMP 98.3–100.1; O2SAT 94–98
[2025-05-12] MEDS: D5W/SOD CHL 0.45% 1,000 ML IV ONE (17:22)
--- NOTE | 2025-05-12 17:30 | DVHPN2 ---
Subjective Patient is seen at bedside, daughter at bedside, patient remains at her best baseline Reviewed: H&P Changes from previous H/P or p: No Changes General: Per HPI Objective Vitals Vital Signs Date Time Temp Pulse Resp B/P (MAP) Pulse Ox O2 Delivery O2 Flow Rate FiO2 05/12/25 17:00 99.7 85 16 116/65 (82) 95 99.7 05/12/25 08:00 Nasal Cannula* 2 28 Intake/Output Intake and Output 05/12/25 07:00 Intake Total 440 ml Output Total 140 ml Balance 300 ml Intake Oral 440 ml Output Urine Total 140 ml # Voids 2 Exam Gen: 74-year-old female in mild distress. Skin: Warm, dry, normal color and texture, no rash. HEENT: Normocephalic atraumatic, mucous membranes moist and pink. Neck: Cervical and supraclavicular nodes normal without enlargement, trachea is midline, thyroid gland is normal without masses. Pulmonary: Clear to auscultation and percussion bilaterally. Cardiac: Sinus bradycardia to sinus tach Abdomen: Soft, nontender, nondistended, bowel sounds present all 4 quadrants, no guarding, no rigidity, no organomegaly. Extremities: No cyanosis, clubbing, no edema Neuro: Patient is nonverbal at baseline, can give thumbs up thumbs down for responses, contracted throughout, Medications Current Medications Medications Dose Ordered Sig/Ethan Route Start Time Stop Time Status Last Admin Dose Admin Nitroglycerin 0.4 mg Q5MINP PRN SL 05/09/25 20:00 Morphine Sulfate 2 mg Q30M PRN IV 05/09/25 20:00 Ondansetron HCl 4 mg Q4HP PRN IV 05/09/25 21:30 Acetaminophen 650 mg Q6HP PRN PO 05/09/25 21:30 05/12/25 16:01 650 MG Quetiapine Fumarate 50 mg HS PO 05/10/25 22:00 Hold Lorazepam 2 mg Q6HP PRN PO 05/10/25 18:30 Laboratory Results Laboratory Tests 05/11/25 06:39 Urinalysis Test 05/10/25 23:00 Urine Color Yellow (Yellow) Urine Clarity Clear (Clear) Urine pH 5.5 (5.0-9.0) Urine Specific [place] 1.031 (1.001-1.035) Urine Protein Trace (Negative) H Urine Ketones 2+ (Negative) H Urine Blood Negative /uL (Negative) Urine Nitrite Negative (Negative) Urine Bilirubin Negative (Negative) Urine Urobilinogen Normal mg/dL (Negative) Urine Leukocyte Esterase Trace /uL (Negative) Urine RBC 4 /hpf (0 - 4) Urine Microscopic WBC 5 /HPF (0-5) Urine Squamous Epithelial Cells Mod /hpf (<5) Urine Bacteria None seen /hpf (None Seen) Urine Mucus Few (None Seen) Urine Glucose Normal mg/dL (Normal) Labs and/or images reviewed: Labs reviewed by me, Image(s) reviewed by me Assessment/Plan Assessment/Plan 74-year-old female presents for evaluation of generalized weakness. Patient is accompanied by her daughter. Patient with a history of CVA nonverbal. Daughter reports patient becoming progressively weaker and more fatigued over the past one-week. Patient is currently on hospice due to CVA. Nurse noted patient heart rate being in the 40s today. Patient does have a pacemaker. In the emergency department her heart rate has been fluctuating from 40s to low 100s. 05/10: Patient remains at her baseline, daughter at bedside concern that hospice patient's C was noticing her heart rate dropped from 100s to 40s. There was apparently assessment of pacemaker done in the ER, currently if report is missing. We will do another assessment to get report, we will consult Cardiology to complete evaluation. We will order COVID/flu, TSH. Reassess tomorrow morning, continue diet puree. 05/11: [employer] rep, at bedside, has optimized the pacemaker settings, capture is much improved. It is appearing lead malfunction is possibly less likely, and perhaps the pacemaker needed optimization only. We will monitor for another 24 hours for any bradycardia or pacemaker dysfunction. If stable patient should be stable to go back to hospice as family plans. Today we will give 250 cc bolus as patient has been NPO, restart pureed diet, continue 50 cc LR 50 cc/hour for total 1 L. 05/12: Another interrogation was done today a.m., results showing again concern for lead dislodgement of pacemaker,. Patient family wants 2nd opinion, cardiology Dr. JIN on the case now. Plan for possible lead change/pacemaker change tomorrow a.m.. Diagnosis: Bradycardia, history of pacemaker Pacemaker, concern for defect ALOC Revoked hospice status Generalized weakness Subclinical hyperthyroid. History of CVA Nonverbal Bed ridden Plan: Eval pacemaker, interrogation. Cardiology following, appreciate recommendations We will order COVID/flu, is neg continue diet puree. IV fluids Tele Full code Plan discussed with: Patient My Orders Orders - MIHAELA MORRIS MD Procedure Category Date Status Time Code Status CODE 05/12/25 Transmitted 08:42 * Cardiology Consult CONS 05/12/25 Transmitted 12:50 D5w/Sod Chl 0.45% PHA 05/12/25 In Process (D5w 1/2ns) 17:00 Date of Service: May 12, 2025 Billing Provider: MIHAELA MORRIS MD Common Visit Codes: [id number] INP/OBS CARE(HIGH) MIHAELA MORRIS MD May 12, 2025 17:30
[2025-05-13] VITALS (12 sets, daily range): BP systolic 104–139; BP diastolic 65–94; PULSE 83–102; RESP 14–20; TEMP 98.1–99; O2SAT 95–100
[2025-05-13 06:19] LABS: Hematocrit 38.5 % (36.0-46.0); Hemoglobin 13.1 g/dL (12.2-16.2); Mean Corpuscular Hemoglobin 31.2 pg (28.0-32.0); Mean Corpuscular Volume 91.6 fL (80.0-100.0); Nucleated Red Blood Cells % 0.1 %
[2025-05-13 06:34] LABS: Alanine Aminotransferase 14 U/L (7-40); Alkaline Phosphatase 60 U/L (46-116); Anion Gap 12 (5-15); BUN/Creatinine Ratio 13.1 (10.0-20.0); Calcium 8.9 mg/dL (8.7-10.4); Carbon Dioxide 25 mmol/L (20-31); Chloride 106 mmol/L (98-107); Glucose 101 mg/dL (74-106); Sodium 143 mmol/L (136-145); Total Protein 6.1 g/dL (5.7-8.2)
[2025-05-13 06:35] LABS: Albumin 3.9 g/dL (3.2-4.8); Bilirubin, Total 0.8 mg/dL (0.2-1.0)
[2025-05-13 06:37] LABS: Blood Urea Nitrogen 8 mg/dL (9-23); INR 1.13 (0.9-1.15); Partial Thromboplastin Time 30.3 SEC (24.5-34.5); Potassium 3.4 mmol/L (3.5-5.1); Prothrombin Time 11.8 sec (9.3-11.8)
--- NOTE | 2025-05-13 11:44 | DVHPN2 ---
Reviewed: Care Plan, H&P Changes from previous H/P or p: No Changes General: Per HPI Objective Vitals Vital Signs Date Time Temp Pulse Resp B/P (MAP) Pulse Ox O2 Delivery O2 Flow Rate FiO2 05/13/25 09:00 99.0 98 16 120/87 (98) 95 99.0 05/13/25 08:00 Nasal Cannula* 2 28 Intake/Output Intake and Output 05/13/25 07:00 Intake Total 975 ml Balance 975 ml Intake Oral 175 ml IV Total 800 ml # Voids 6 Medications Current Medications Medications Dose Ordered Sig/Ethan Route Start Time Stop Time Status Last Admin Dose Admin Nitroglycerin 0.4 mg Q5MINP PRN SL 05/09/25 20:00 Morphine Sulfate 2 mg Q30M PRN IV 05/09/25 20:00 Ondansetron HCl 4 mg Q4HP PRN IV 05/09/25 21:30 Acetaminophen 650 mg Q6HP PRN PO 05/09/25 21:30 05/12/25 16:01 650 MG Quetiapine Fumarate 50 mg HS PO 05/10/25 22:00 Hold Lorazepam 2 mg Q6HP PRN PO 05/10/25 18:30 Laboratory Results Laboratory Tests 05/13/25 06:00 Chemistry Test 05/13/25 06:00 Albumin 3.9 g/dL (3.2-4.8) Calcium Level 8.9 mg/dL (8.7-10.4) Total Protein 6.1 g/dL (5.7-8.2) Coagulation Test 05/13/25 06:00 Prothrombin Time 11.8 sec (9.3-11.8) Prothrombin Time INR 1.13 (0.9-1.15) Activated Partial Thromboplast Time 30.3 SEC (24.5-34.5) LFT Test 05/13/25 06:00 Alanine Aminotransferase (ALT) 14 U/L (7-40) Alkaline Phosphatase 60 U/L (46-116) Aspartate Amino Transferase (AST) 15 U/L (13-40) Total Bilirubin 0.8 mg/dL (0.2-1.0) Urinalysis Test 05/10/25 23:00 Urine Color Yellow (Yellow) Urine Clarity Clear (Clear) Urine pH 5.5 (5.0-9.0) Urine Specific [place] 1.031 (1.001-1.035) Urine Protein Trace (Negative) H Urine Ketones 2+ (Negative) H Urine Blood Negative /uL (Negative) Urine Nitrite Negative (Negative) Urine Bilirubin Negative (Negative) Urine Urobilinogen Normal mg/dL (Negative) Urine Leukocyte Esterase Trace /uL (Negative) Urine RBC 4 /hpf (0 - 4) Urine Microscopic WBC 5 /HPF (0-5) Urine Squamous Epithelial Cells Mod /hpf (<5) Urine Bacteria None seen /hpf (None Seen) Urine Mucus Few (None Seen) Urine Glucose Normal mg/dL (Normal) Labs and/or images reviewed: Labs reviewed by me, Image(s) reviewed by me Assessment/Plan Assessment/Plan Covering For Dr. Duncan Bradycardia, history of pacemaker ? pacemaker malfunction: Cardiology consult by Dr. Russo appreciated ALOC Hospice revoked Generalized weakness Subclinical hyperthyroid. History of CVA Nonverbal Bed ridden Dimitry Cortes [phone] bedside [facility] [place] Patient getting procedure by Dr. Contreras today Plan discussed with: Patient Date of Service: May 13, 2025 Billing Provider: COLEEN HEATON MD Common Visit Codes: [id number] INP/OBS CARE([facility]) JETHRO HEATON MD May 13, 2025 11:44
--- NOTE | 2025-05-13 13:00 | ECG ---
[facility] Test Date: 2025-05-12 Test Time: 12:29:12 Pat Name: WOLFGANG MERAZ Department: Room: 0276T A Gender: F [place] Assessor: klaudia : 1950 Requested By: MIHAELA LEIJA Order Number: [id number] Reading MD: Socrates Wright Measurements Intervals [place] Rate: 96 P: 0 MD: 0 QRS: -72 QRSD: 96 T: 30 QT: 393 QTc: 497 Interpretive Statements Normal sinus rhythm Ventricular bigeminy, PVCs Aberrant complex Abnormal R-wave progression, late transition Inferior infarct, old Electronically Signed On 05-17-2025 21:40:15 PDT by Socrates Wright Please click the below link to view image of tracing.
[2025-05-13] MEDS: MIDAZOLAM HCL 2MG/2ML 2ml VIAL (1mg/ml) ONE (14:36)
[2025-05-13] MEDS: ceFAZolin 1GM/50ML 50 ML IV ONE (14:36)
[2025-05-13] MEDS: fentaNYL CITRATE 100 MCG/2 ML VL ONE (14:36)
[2025-05-13] MEDS: VANCOMYCIN HCL 1000 MG VL ONE (14:36)
[2025-05-13] MEDS: LIDOCAINE 2%HCL (LOCAL ANESTH.) INJ 20ML MDV ONE (14:37)
--- NOTE | 2025-05-13 14:57 | DVHPN2 ---
Progress Note - Dictate Date Seen: May 12, 2025 Medical Necessity Reason Pt with a Central, PICC or Fol: No Subjective PT WITH NON FUNCTIONAL RV LEAD NOW HAD POSSIBLE SINBLE EVENT OD SYNCOPE NO TO UNDER DO LEAD REPLACEMENT AND GENERATOR CHANGE BOCAS APHASIA HX OF CVA vital signs Vital Sign Date Time Temp Pulse Resp B/P (MAP) Pulse Ox O2 Delivery O2 Flow Rate FiO2 05/13/25 12:00 98.2 91 16 123/88 (100) 96 98.2 05/13/25 08:00 Nasal Cannula* 2 28 Total Intake and Output 05/12/25 05/12/25 05/13/25 15:00 23:00 07:00 Intake Total 75 ml 150 ml 750 ml Balance 75 ml 150 ml 750 ml medications Current Medications Medications Dose Ordered Sig/Ethan Route Start Time Stop Time Status Last Admin Dose Admin Nitroglycerin 0.4 mg Q5MINP PRN SL 05/09/25 20:00 Morphine Sulfate 2 mg Q30M PRN IV 05/09/25 20:00 Ondansetron HCl 4 mg Q4HP PRN IV 05/09/25 21:30 Acetaminophen 650 mg Q6HP PRN PO 05/09/25 21:30 05/12/25 16:01 650 MG Quetiapine Fumarate 50 mg HS PO 05/10/25 22:00 Hold Lorazepam 2 mg Q6HP PRN PO 05/10/25 18:30 laboratory and microbiology Laboratory Tests 05/13/25 06:00 Test 05/13/25 06:00 Range/Units Serum Glucose 101 74-106 mg/dL Problem List ON FUNCTIONAL RV LEAD NOW HAD POSSIBLE SINBLE EVENT OD SYNCOPE NO TO UNDER DO LEAD REPLACEMENT AND GENERATOR CHANGE BOCAS APHASIA HX OF CVA CORRECT HYPOKALEMIA Assessment/Plan LRAD CHANGE AND UOGRADE FROM PREVIOUS PACEMAKER AT END OF LIFE Dietary Evaluation Review Comments: encourage optimal PO intake Expected Outcomes/Goals: improved nutrition related lab values. gradual wt gain Plan discussed with: Patient ROSE PATTON MD May 13, 2025 14:56
--- NOTE | 2025-05-13 16:15 | DVHOP ---
DATE OF SURGERY: 05/13/2025 HISTORY OF PRESENT ILLNESS: The patient who is 74 years old with history of multiple strokes, sick sinus syndrome status post permanent pacemaker implantation. Now, the patient's atrial and ventricular leads, both leads are nonfunctional. The patient is now to undergo permanent pacemaker implantation with implantation of new leads, possible extraction of the old leads, and implantation of a new permanent pacemaker. Risks and benefits were explained to the family members. The patient has been on hospice, now there is hospice revocation. Because of the failure of the pacemaker, the patient is having episodes of apnea and episodes of mental confusion. PROCEDURES PERFORMED: * Conscious sedation. * Venography. * Attempted percutaneous transluminal venoplasty of the left subclavian. DESCRIPTION OF PROCEDURE: The patient was prepped and draped in sterile conditions. 1% Xylocaine was used to anesthetize the left subclavicular region using a Cook needle. The subclavian vein was engaged. Using a Seldinger technique, we attempted to put a wire down. 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 We attempted to angioplasty. The sheath was placed and multiple wires were attempted including Terumo wire, 2 Gold wire, but all wires were not able to cross because of chronicity of the occlusion and because of collateral circulation. The patient's left jugular was patent; however, we were not able to access it. The patient patent; however, tunneling catheters would be difficult to perform in this patient because of the patient's body. RECOMMENDATION: At this time is, after several attempts to access the left subclavian, we elected to terminate the procedure and discussed with the family. She would be an ideal candidate for Micra leadless pacemaker. We will arrange for it in 48 hours. Ben Webber MD SA/SOHAIL/MEREDITH TID: [id number] RECEIPT: [id number]
[2025-05-13] MEDS ORDERED: BUSP5TAB51 PO (17:54)
[2025-05-13] MEDS ORDERED: ALEN70TA74 PO (17:54)
[2025-05-13] MEDS ORDERED: LEVO100T8 PO (17:54)
[2025-05-13] MEDS ORDERED: SENN-58 PO (17:54)
[2025-05-13] MEDS ORDERED: TEMA30CA PO (17:54)
[2025-05-13] MEDS ORDERED: PRAV20TA3 PO (17:54)
[2025-05-14] VITALS (8 sets, daily range): BP systolic 97–126; BP diastolic 64–76; PULSE 72–91; RESP 16–20; TEMP 97.8–100.1; O2SAT 95–100
--- NOTE | 2025-05-14 12:06 | DVHPN2 ---
Reviewed: Care Plan, H&P Changes from previous H/P or p: No Changes General: Per HPI Objective Vitals Vital Signs Date Time Temp Pulse Resp B/P (MAP) Pulse Ox O2 Delivery O2 Flow Rate FiO2 05/14/25 09:00 98.3 74 100/64 (76) 99 98.3 05/14/25 08:00 17 Nasal Cannula* 2 28 Intake/Output Intake and Output 05/14/25 07:00 Intake Total 200 ml Balance 200 ml Intake Oral 0 ml IV Total 200 ml Medications Current Medications Medications Dose Ordered Sig/Ethan Route Start Time Stop Time Status Last Admin Dose Admin Nitroglycerin 0.4 mg Q5MINP PRN SL 05/09/25 20:00 Morphine Sulfate 2 mg Q30M PRN IV 05/09/25 20:00 Ondansetron HCl 4 mg Q4HP PRN IV 05/09/25 21:30 Acetaminophen 650 mg Q6HP PRN PO 05/09/25 21:30 05/12/25 16:01 650 MG Quetiapine Fumarate 50 mg HS PO 05/10/25 22:00 Hold Lorazepam 2 mg Q6HP PRN PO 05/10/25 18:30 Laboratory Results Laboratory Tests 05/13/25 06:00 Urinalysis Test 05/10/25 23:00 Urine Color Yellow (Yellow) Urine Clarity Clear (Clear) Urine pH 5.5 (5.0-9.0) Urine Specific [place] 1.031 (1.001-1.035) Urine Protein Trace (Negative) H Urine Ketones 2+ (Negative) H Urine Blood Negative /uL (Negative) Urine Nitrite Negative (Negative) Urine Bilirubin Negative (Negative) Urine Urobilinogen Normal mg/dL (Negative) Urine Leukocyte Esterase Trace /uL (Negative) Urine RBC 4 /hpf (0 - 4) Urine Microscopic WBC 5 /HPF (0-5) Urine Squamous Epithelial Cells Mod /hpf (<5) Urine Bacteria None seen /hpf (None Seen) Urine Mucus Few (None Seen) Urine Glucose Normal mg/dL (Normal) Labs and/or images reviewed: Labs reviewed by me, Image(s) reviewed by me Assessment/Plan Assessment/Plan Covering For Dr. Duncan Bradycardia, history of pacemaker ? pacemaker malfunction: Cardiology consult by Dr. Russo appreciated ALOC Hospice revoked Generalized weakness Subclinical hyperthyroid. History of CVA Nonverbal Bed ridden [facility] [phone] bedside Patient relocated to [place] [facility] from [place] Attempted percutaneous transluminal venoplasty of the left subclavian. Per Dr. Contreras patient may be candidate for leadless pacemaker which will be arranged in the next 48 hours Plan discussed with: Patient Date of Service: May 14, 2025 Billing Provider: JETHRO HEATON MD Common Visit Codes: [id number] INP/OBS CARE([facility]) JETHRO HEATON MD May 14, 2025 12:06
[2025-05-15] VITALS (11 sets, daily range): BP systolic 103–120; BP diastolic 67–81; PULSE 74–95; RESP 16–19; TEMP 97.9–100.4; O2SAT 92–98
--- NOTE | 2025-05-15 10:21 | DVHPN2 ---
Reviewed: Care Plan, H&P Changes from previous H/P or p: No Changes General: Per HPI Objective Vitals Vital Signs Date Time Temp Pulse Resp B/P (MAP) Pulse Ox O2 Delivery O2 Flow Rate FiO2 05/15/25 08:31 98.8 80 16 120/74 (89) 98 98.8 05/15/25 08:00 Nasal Cannula* 2 28 Intake/Output Intake and Output 05/15/25 07:00 Intake Total 100 ml Output Total 300 ml Balance -200 ml Intake Oral 100 ml Output Urine Total 300 ml Medications Current Medications Medications Dose Ordered Sig/Ethan Route Start Time Stop Time Status Last Admin Dose Admin Nitroglycerin 0.4 mg Q5MINP PRN SL 05/09/25 20:00 Morphine Sulfate 2 mg Q30M PRN IV 05/09/25 20:00 Ondansetron HCl 4 mg Q4HP PRN IV 05/09/25 21:30 Acetaminophen 650 mg Q6HP PRN PO 05/09/25 21:30 05/14/25 17:08 650 MG Quetiapine Fumarate 50 mg HS PO 05/10/25 22:00 Hold Lorazepam 2 mg Q6HP PRN PO 05/10/25 18:30 Laboratory Results Laboratory Tests 05/13/25 06:00 Urinalysis Test 05/10/25 23:00 Urine Color Yellow (Yellow) Urine Clarity Clear (Clear) Urine pH 5.5 (5.0-9.0) Urine Specific [place] 1.031 (1.001-1.035) Urine Protein Trace (Negative) H Urine Ketones 2+ (Negative) H Urine Blood Negative /uL (Negative) Urine Nitrite Negative (Negative) Urine Bilirubin Negative (Negative) Urine Urobilinogen Normal mg/dL (Negative) Urine Leukocyte Esterase Trace /uL (Negative) Urine RBC 4 /hpf (0 - 4) Urine Microscopic WBC 5 /HPF (0-5) Urine Squamous Epithelial Cells Mod /hpf (<5) Urine Bacteria None seen /hpf (None Seen) Urine Mucus Few (None Seen) Urine Glucose Normal mg/dL (Normal) Labs and/or images reviewed: Labs reviewed by me, Image(s) reviewed by me Assessment/Plan Assessment/Plan Covering For Dr. Duncan Bradycardia, history of pacemaker ? pacemaker malfunction: Cardiology consult by Dr. Russo appreciated ALOC Hospice revoked Generalized weakness Subclinical hyperthyroid. History of CVA Nonverbal Bed ridden [facility] [phone] bedside Patient relocated to [facility] from [place] Attempted percutaneous transluminal venoplasty of the left subclavian. Per Dr. Contreras patient may be candidate for leadless pacemaker which will be arranged Friday Plan discussed with: Patient My Orders Orders - JETHRO HEATON MD Procedure Category Date Status Time Apply Z-Guard ADRIANO 05/14/25 In Process 11:27 Date of Service: May 15, 2025 Billing Provider: JETHRO HEATON MD Common Visit Codes: [id number] INP/OBS CARE([facility]) JETHRO HEATON MD May 15, 2025 10:21
[2025-05-15] MEDS: BISACODYL 10 MG RECT SUPP PR ONE (11:18)
[2025-05-15] MEDS: guaiFENesin-DM 100/10mg/5ml SYR PO PRN (12:39)
[2025-05-16] VITALS (15 sets, daily range): BP systolic 87–132; BP diastolic 61–80; PULSE 65–99; RESP 16–22; TEMP 97.4–98.8; O2SAT 92–100
--- NOTE | 2025-05-16 05:31 | DVH ---
CHEST RADIOGRAPH Indication: PROCEDURE Technique: Single frontal view of the chest was obtained COMPARISON: XY CHEST PORTABLE on DOS: 05/09/25 FINDINGS: Lines and Tubes: None. Left anterior chest wall dual lead cardiac pacing device. Lungs: Clear Pleura: No effusion. No pneumothorax. Cardiomediastinal contours: Unremarkable Bones: Unremarkable IMPRESSION: 1. No acute disease.
[2025-05-16 07:01] LABS: INR 1.11 (0.9-1.15); Partial Thromboplastin Time 31.6 SEC (24.5-34.5); Prothrombin Time 11.6 sec (9.3-11.8)
[2025-05-16 07:02] LABS: Hematocrit 40.2 % (36.0-46.0); Hemoglobin 13.8 g/dL (12.2-16.2); Mean Corpuscular Hemoglobin 31.6 pg (28.0-32.0); Mean Corpuscular Volume 92.0 fL (80.0-100.0); Nucleated Red Blood Cells % 0.1 %
[2025-05-16 07:12] LABS: Albumin 4.0 g/dL (3.2-4.8); Alkaline Phosphatase 66 U/L (46-116); Anion Gap 10 (5-15); BUN/Creatinine Ratio 15.4 (10.0-20.0); Bilirubin, Total 0.9 mg/dL (0.2-1.0); Blood Urea Nitrogen 10 mg/dL (9-23); Calcium 8.9 mg/dL (8.7-10.4); Carbon Dioxide 29 mmol/L (20-31); Chloride 105 mmol/L (98-107); Glucose 91 mg/dL (74-106); Sodium 144 mmol/L (136-145); Total Protein 6.4 g/dL (5.7-8.2)
[2025-05-16 07:14] LABS: Alanine Aminotransferase < 9 U/L (7-40); Potassium 3.0 mmol/L (3.5-5.1)
--- NOTE | 2025-05-16 07:32 | ECG ---
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
[2025-05-16] MEDS: POTASSIUM CHL 20MEQ/100ML 100 ML IV ONE (07:46)
[2025-05-16] MEDS: IODIXANOL 320MG/ML 100ML BTL IV ONE (12:50)
[2025-05-16] MEDS: HEPARIN IN NS 1000Units/500mL 1,500 ML ONE (12:50)
[2025-05-16] MEDS: MIDAZOLAM HCL 2MG/2ML 2ml VIAL (1mg/ml) ONE (13:08)
[2025-05-16] MEDS: fentaNYL CITRATE 100 MCG/2 ML VL ONE (13:08)
[2025-05-16] MEDS: LIDOCAINE 2%HCL (LOCAL ANESTH.) INJ 20ML MDV ONE (13:13)
[2025-05-16] MEDS: ANGIOMAX 250 MG VIAL IV ONE (13:45)
[2025-05-16] MEDS: SODIUM CHL 0.9% 50 ML ONE (13:46)
[2025-05-16] MEDS: METOCLOPRAMIDE HCL 5MG/ml INJ 2ml VIAL ONE (13:48)
--- NOTE | 2025-05-16 14:16 | DVHPN2 ---
Progress Note - Dictate Date Seen: May 16, 2025 Medical Necessity Reason Pt with a Central, PICC or Fol: No Subjective PT WITH NON FUNCTIONAL RV LEAD NOW HAD POSSIBLE SINBLE EVENT OD SYNCOPE NO TO UNDER DO LEAD REPLACEMENT AND GENERATOR CHANGE BOCAS APHASIA HX OF CVA vital signs Vital Sign Date Time Temp Pulse Resp B/P (MAP) Pulse Ox O2 Delivery O2 Flow Rate FiO2 05/16/25 13:00 98.1 82 16 126/79 (95) 96 98.1 05/16/25 08:00 Nasal Cannula* 2 28 Total Intake and Output 05/15/25 05/15/25 05/16/25 15:00 23:00 07:00 Intake Total 220 ml 220 ml 0 ml Balance 220 ml 220 ml 0 ml medications Current Medications Medications Dose Ordered Sig/Ethan Route Start Time Stop Time Status Last Admin Dose Admin Nitroglycerin 0.4 mg Q5MINP PRN SL 05/09/25 20:00 Morphine Sulfate 2 mg Q30M PRN IV 05/09/25 20:00 Ondansetron HCl 4 mg Q4HP PRN IV 05/09/25 21:30 Acetaminophen 650 mg Q6HP PRN PO 05/09/25 21:30 05/14/25 17:08 650 MG Quetiapine Fumarate 50 mg HS PO 05/10/25 22:00 Hold Lorazepam 2 mg Q6HP PRN PO 05/10/25 18:30 Guaifenesin/ Dextromethorphan 10 ml Q8HP PRN PO 05/15/25 11:30 05/15/25 21:49 10 ML laboratory and microbiology Laboratory Tests 05/16/25 05:44 Test 05/16/25 05:44 Range/Units Serum Glucose 91 74-106 mg/dL Problem List ON FUNCTIONAL RV LEAD NOW HAD POSSIBLE SINBLE EVENT OD SYNCOPE NO TO UNDER DO LEAD REPLACEMENT AND GENERATOR CHANGE BOCAS APHASIA HX OF CVA CORRECT HYPOKALEMIA Assessment/Plan LRAD CHANGE AND UOGRADE FROM PREVIOUS PACEMAKER AT END OF LIFE S/P MICRA IMPLANTATION NO LEFT SUBCLAVIAN ACCESS Dietary Evaluation Review Comments: encourage optimal PO intake Expected Outcomes/Goals: improved nutrition related lab values. gradual wt gain Plan discussed with: Daughter ROES PATTON MD May 16, 2025 14:15
--- NOTE | 2025-05-16 15:11 | DVH ---
CHEST RADIOGRAPH Indication: S/P PACEMAKER Technique: Single frontal view of the chest was obtained COMPARISON: XY CHEST PORTABLE on DOS: 05/16/25, XY CHEST PORTABLE on DOS: 05/09/25 FINDINGS: Lines and Tubes: Left chest wall pacemaker Lungs: Clear Pleura: No effusion. No pneumothorax. Cardiomediastinal contours: Unremarkable Bones: Unremarkable IMPRESSION: No acute disease.
--- NOTE | 2025-05-16 15:19 | ECG ---
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
--- NOTE | 2025-05-16 16:19 | DVHPN2 ---
Subjective Patient is seen at bedside, daughter at bedside, patient remains at her best baseline Reviewed: Care Plan, H&P Changes from previous H/P or p: No Changes General: Per HPI Objective Vitals Vital Signs Date Time Temp Pulse Resp B/P (MAP) Pulse Ox O2 Delivery O2 Flow Rate FiO2 05/16/25 13:00 98.1 82 16 126/79 (95) 96 98.1 05/16/25 08:00 Nasal Cannula* 2 28 Intake/Output Intake and Output 05/16/25 07:00 Intake Total 440 ml Balance 440 ml Intake Oral 440 ml # Voids 4 Exam Gen: 74-year-old female in mild distress. Skin: Warm, dry, normal color and texture, no rash. HEENT: Normocephalic atraumatic, mucous membranes moist and pink. Neck: Cervical and supraclavicular nodes normal without enlargement, trachea is midline, thyroid gland is normal without masses. Pulmonary: Clear to auscultation and percussion bilaterally. Cardiac: Sinus bradycardia to sinus tach Abdomen: Soft, nontender, nondistended, bowel sounds present all 4 quadrants, no guarding, no rigidity, no organomegaly. Extremities: No cyanosis, clubbing, no edema Neuro: Patient is nonverbal at baseline, can give thumbs up thumbs down for responses, contracted throughout, Medications Current Medications Medications Dose Ordered Sig/Ethan Route Start Time Stop Time Status Last Admin Dose Admin Nitroglycerin 0.4 mg Q5MINP PRN SL 05/09/25 20:00 Morphine Sulfate 2 mg Q30M PRN IV 05/09/25 20:00 Ondansetron HCl 4 mg Q4HP PRN IV 05/09/25 21:30 Acetaminophen 650 mg Q6HP PRN PO 05/09/25 21:30 05/14/25 17:08 650 MG Quetiapine Fumarate 50 mg HS PO 05/10/25 22:00 Hold Lorazepam 2 mg Q6HP PRN PO 05/10/25 18:30 Guaifenesin/ Dextromethorphan 10 ml Q8HP PRN PO 05/15/25 11:30 05/15/25 21:49 10 ML Laboratory Results Laboratory Tests 05/16/25 05:44 Chemistry Test 05/16/25 05:44 Albumin 4.0 g/dL (3.2-4.8) Calcium Level 8.9 mg/dL (8.7-10.4) Total Protein 6.4 g/dL (5.7-8.2) Coagulation Test 05/16/25 05:44 Prothrombin Time 11.6 sec (9.3-11.8) Prothrombin Time INR 1.11 (0.9-1.15) Activated Partial Thromboplast Time 31.6 SEC (24.5-34.5) LFT Test 05/16/25 05:44 Alanine Aminotransferase (ALT) < 9 U/L (7-40) Alkaline Phosphatase 66 U/L (46-116) Aspartate Amino Transferase (AST) 13 U/L (13-40) Total Bilirubin 0.9 mg/dL (0.2-1.0) Urinalysis Test 05/10/25 23:00 Urine Color Yellow (Yellow) Urine Clarity Clear (Clear) Urine pH 5.5 (5.0-9.0) Urine Specific [place] 1.031 (1.001-1.035) Urine Protein Trace (Negative) H Urine Ketones 2+ (Negative) H Urine Blood Negative /uL (Negative) Urine Nitrite Negative (Negative) Urine Bilirubin Negative (Negative) Urine Urobilinogen Normal mg/dL (Negative) Urine Leukocyte Esterase Trace /uL (Negative) Urine RBC 4 /hpf (0 - 4) Urine Microscopic WBC 5 /HPF (0-5) Urine Squamous Epithelial Cells Mod /hpf (<5) Urine Bacteria None seen /hpf (None Seen) Urine Mucus Few (None Seen) Urine Glucose Normal mg/dL (Normal) Labs and/or images reviewed: Labs reviewed by me, Image(s) reviewed by me Assessment/Plan Assessment/Plan 74-year-old female presents for evaluation of generalized weakness. Patient is accompanied by her daughter. Patient with a history of CVA nonverbal. Daughter reports patient becoming progressively weaker and more fatigued over the past one-week. Patient is currently on hospice due to CVA. Nurse noted patient heart rate being in the 40s today. Patient does have a pacemaker. In the emergency department her heart rate has been fluctuating from 40s to low 100s. 05/10: Patient remains at her baseline, daughter at bedside concern that hospice patient's C was noticing her heart rate dropped from 100s to 40s. There was apparently assessment of pacemaker done in the ER, currently if report is missing. We will do another assessment to get report, we will consult Cardiology to complete evaluation. We will order COVID/flu, TSH. Reassess tomorrow morning, continue diet puree. 05/11: [employer] rep, at bedside, has optimized the pacemaker settings, capture is much improved. It is appearing lead malfunction is possibly less likely, and perhaps the pacemaker needed optimization only. We will monitor for another 24 hours for any bradycardia or pacemaker dysfunction. If stable patient should be stable to go back to hospice as family plans. Today we will give 250 cc bolus as patient has been NPO, restart pureed diet, continue 50 cc LR 50 cc/hour for total 1 L. 05/12: Another interrogation was done today a.m., results showing again concern for lead dislodgement of pacemaker,. Patient family wants 2nd opinion, cardiology Dr. JIN on the case now. Plan for possible lead change/pacemaker change tomorrow a.m.. 05/16: Patient unable to get lead change on Sunday 05/13. Plan for leadless pacemaker today. We will follow up with Cardiology. Diagnosis: Bradycardia, history of pacemaker Pacemaker, concern for defect ALOC Revoked hospice status Generalized weakness Subclinical hyperthyroid. History of CVA Nonverbal Bed ridden Plan: Eval pacemaker, interrogation. Cardiology following, appreciate recommendations We will order COVID/flu, is neg continue diet puree. IV fluids Tele Full code Plan discussed with: Patient Date of Service: May 16, 2025 Billing Provider: MIHAELA MORRIS MD Common Visit Codes: [id number] INP/OBS CARE([facility]) MIHAELA MORRIS MD May 16, 2025 16:19
[2025-05-17 01:00] VITALS: BP 110/81; PULSE 90; RESP 18; TEMP 98.8; O2SAT 94
[2025-05-17 05:00] VITALS: BP 117/83; PULSE 92; RESP 20; TEMP 98.7; O2SAT 93
[2025-05-17 08:00] VITALS: PULSE 76; PULSE 81; RESP 20; O2SAT 95
[2025-05-17 08:51] VITALS: BP 103/67; PULSE 71; RESP 16; TEMP 98.2; O2SAT 95
--- NOTE | 2025-05-17 10:14 | DVHPN2 ---
Progress Note - Dictate Date Seen: May 14, 2025 Medical Necessity Reason Pt with a Central, PICC or Fol: No Subjective PT WITH NON FUNCTIONAL RV LEAD NOW HAD POSSIBLE SINBLE EVENT OD SYNCOPE NO TO UNDER DO LEAD REPLACEMENT AND GENERATOR CHANGE BOCAS APHASIA HX OF CVA vital signs Vital Sign Date Time Temp Pulse Resp B/P (MAP) Pulse Ox O2 Delivery O2 Flow Rate FiO2 05/17/25 08:51 98.2 71 16 103/67 (79) 95 98.2 05/17/25 08:00 Nasal Cannula* 2 28 Total Intake and Output 05/16/25 05/16/25 05/17/25 15:00 23:00 07:00 Intake Total 100 ml 0 ml 45 ml Balance 100 ml 0 ml 45 ml medications Current Medications Medications Dose Ordered Sig/Ethan Route Start Time Stop Time Status Last Admin Dose Admin Nitroglycerin 0.4 mg Q5MINP PRN SL 05/09/25 20:00 Morphine Sulfate 2 mg Q30M PRN IV 05/09/25 20:00 Ondansetron HCl 4 mg Q4HP PRN IV 05/09/25 21:30 Acetaminophen 650 mg Q6HP PRN PO 05/09/25 21:30 05/14/25 17:08 650 MG Quetiapine Fumarate 50 mg HS PO 05/10/25 22:00 Hold Lorazepam 2 mg Q6HP PRN PO 05/10/25 18:30 Guaifenesin/ Dextromethorphan 10 ml Q8HP PRN PO 05/15/25 11:30 05/16/25 21:48 10 ML laboratory and microbiology Laboratory Tests 05/16/25 16:49 05/16/25 05:44 Test 05/16/25 05:44 Range/Units Serum Glucose 91 74-106 mg/dL Problem List ON FUNCTIONAL RV LEAD NOW HAD POSSIBLE SINBLE EVENT OD SYNCOPE NO TO UNDER DO LEAD REPLACEMENT AND GENERATOR CHANGE BOCAS APHASIA HX OF CVA CORRECT HYPOKALEMIA Assessment/Plan LRAD CHANGE AND UOGRADE FROM PREVIOUS PACEMAKER AT END OF LIFE S/P MICRA IMPLANTATION NO LEFT SUBCLAVIAN ACCESS MICRA PPI ON FRIDAY Dietary Evaluation Review Comments: encourage optimal PO intake Expected Outcomes/Goals: improved nutrition related lab values. gradual wt gain Plan discussed with: Patient ROSE PATTON MD May 17, 2025 10:13
--- NOTE | 2025-05-17 10:15 | DVHPN2 ---
Progress Note - Dictate Date Seen: May 17, 2025 Medical Necessity Reason Pt with a Central, PICC or Fol: No Subjective PT WITH NON FUNCTIONAL RV LEAD NOW HAD POSSIBLE SINBLE EVENT OD SYNCOPE NO TO UNDER DO LEAD REPLACEMENT AND GENERATOR CHANGE BOCAS APHASIA HX OF CVA vital signs Vital Sign Date Time Temp Pulse Resp B/P (MAP) Pulse Ox O2 Delivery O2 Flow Rate FiO2 05/17/25 08:51 98.2 71 16 103/67 (79) 95 98.2 05/17/25 08:00 Nasal Cannula* 2 28 Total Intake and Output 05/16/25 05/16/25 05/17/25 15:00 23:00 07:00 Intake Total 100 ml 0 ml 45 ml Balance 100 ml 0 ml 45 ml medications Current Medications Medications Dose Ordered Sig/Ethan Route Start Time Stop Time Status Last Admin Dose Admin Nitroglycerin 0.4 mg Q5MINP PRN SL 05/09/25 20:00 Morphine Sulfate 2 mg Q30M PRN IV 05/09/25 20:00 Ondansetron HCl 4 mg Q4HP PRN IV 05/09/25 21:30 Acetaminophen 650 mg Q6HP PRN PO 05/09/25 21:30 05/14/25 17:08 650 MG Quetiapine Fumarate 50 mg HS PO 05/10/25 22:00 Hold Lorazepam 2 mg Q6HP PRN PO 05/10/25 18:30 Guaifenesin/ Dextromethorphan 10 ml Q8HP PRN PO 05/15/25 11:30 05/16/25 21:48 10 ML laboratory and microbiology Laboratory Tests 05/16/25 16:49 05/16/25 05:44 Test 05/16/25 05:44 Range/Units Serum Glucose 91 74-106 mg/dL Problem List ON FUNCTIONAL RV LEAD NOW HAD POSSIBLE SINBLE EVENT OD SYNCOPE NO TO UNDER DO LEAD REPLACEMENT AND GENERATOR CHANGE BOCAS APHASIA HX OF CVA CORRECT HYPOKALEMIA Assessment/Plan LRAD CHANGE AND UOGRADE FROM PREVIOUS PACEMAKER AT END OF LIFE S/P MICRA IMPLANTATION NO LEFT SUBCLAVIAN ACCESS S/P MICRA PPI S/P THIS MORNING INTERROGATION FUNCTIONING WNL MAY DC HOME Dietary Evaluation Review Comments: encourage optimal PO intake Expected Outcomes/Goals: improved nutrition related lab values. gradual wt gain Plan discussed with: Daughter ROSE PATTON MD May 17, 2025 10:15
--- NOTE | 2025-05-17 10:33 | DVHDS2 ---
Discharge Summary Date of Admission May 09, 2025 at 19:51 Date of Discharge: May 17, 2025 Labs/Diagnostic Data: Laboratory Results Test 05/16/25 16:49 05/16/25 05:44 05/11/25 06:39 05/10/25 23:00 Potassium Level 3.7 mmol/L (3.5-5.1) White Blood Count 6.0 10^3/uL (4.4-10.8) Red Blood Count 4.37 10^6/uL (4.0-5.20) Hemoglobin 13.8 g/dL (12.2-16.2) Hematocrit 40.2 % (36.0-46.0) Mean Corpuscular Volume 92.0 fL (80.0-100.0) Mean Corpuscular Hemoglobin 31.6 pg (28.0-32.0) Mean Corpuscular Hemoglobin Concent 34.4 g/dL (32.0-36.0) Red Cell Distribution Width 13.3 % (11.8-14.3) Platelet Count 192 10^3/uL (140-450) Mean Platelet Volume 9.9 fL (6.9-10.8) Neutrophils (%) (Auto) 70.5 % (37.0-80.0) Lymphocytes (%) (Auto) 18.6 % (10.0-50.0) Monocytes (%) (Auto) 9.4 % (0.0-12.0) Eosinophils (%) (Auto) 1.0 % (0.0-7.0) Basophils (%) (Auto) 0.5 % (0.0-2.0) Neutrophils # (Auto) 4.3 10 ^3/uL (1.6-8.6) Lymphocytes # (Auto) 1.1 10 ^3/uL (0.4-5.4) Monocytes # (Auto) 0.6 10 ^3/uL (0-1.3) Eosinophils # (Auto) 0.1 10 ^3/uL (0-0.8) Basophils # (Auto) 0 10 ^3/uL (0-0.2) Nucleated Red Blood Cells 0.1 % Prothrombin Time 11.6 sec (9.3-11.8) Prothrombin Time INR 1.11 (0.9-1.15) Activated Partial Thromboplast Time 31.6 SEC (24.5-34.5) Sodium Level 144 mmol/L (136-145) Chloride Level 105 mmol/L (98-107) Carbon Dioxide Level 29 mmol/L (20-31) Anion Gap 10 (5-15) Blood Urea Nitrogen 10 mg/dL (9-23) Creatinine 0.65 mg/dL (0.550-1.02) Glomerular Filtration Rate Calc 92 mL/min (>90) BUN/Creatinine Ratio 15.4 (10.0-20.0) Serum Glucose 91 mg/dL (74-106) Calcium Level 8.9 mg/dL (8.7-10.4) Total Bilirubin 0.9 mg/dL (0.2-1.0) Aspartate Amino Transferase (AST) 13 U/L (13-40) Alanine Aminotransferase (ALT) < 9 U/L (7-40) Alkaline Phosphatase 66 U/L (46-116) Total Protein 6.4 g/dL (5.7-8.2) Albumin 4.0 g/dL (3.2-4.8) Free Thyroxine (T4) Calculated 1.13 ng/dL (0.89-1.76) Urine Color Yellow (Yellow) Urine Clarity Clear (Clear) Urine pH 5.5 (5.0-9.0) Urine Specific [place] 1.031 (1.001-1.035) Urine Protein Trace (Negative) Urine Ketones 2+ (Negative) Urine Blood Negative /uL (Negative) Urine Nitrite Negative (Negative) Urine Bilirubin Negative (Negative) Urine Urobilinogen Normal mg/dL (Negative) Urine Leukocyte Esterase Trace /uL (Negative) Urine RBC 4 /hpf (0 - 4) Urine Microscopic WBC 5 /HPF (0-5) Urine Squamous Epithelial Cells Mod /hpf (<5) Urine Bacteria None seen /hpf (None Seen) Urine Mucus Few (None Seen) Urine Glucose Normal mg/dL (Normal) Test 05/10/25 13:36 05/10/25 00:00 05/09/25 16:53 05/09/25 13:55 Influenza Type A Antigen Negative (Negative) Influenza Type B Antigen Negative (Negative) SARS-CoV-2 Antigen (Rapid) Negative (NEGATIVE) Troponin I High Sensitivity 7 ng/L (</=34) B-Type Natriuretic Peptide 48.54 pg/mL (0-100) Thyroid Stimulating Hormone (TSH) 0.19 uIU/mL (0.55-4.78) Other Laboratory Tests 05/16/25 16:49 05/16/25 05:44 Brief Hx & Hospital Course: 74-year-old female presents for evaluation of generalized weakness. Patient is accompanied by her daughter. Patient with a history of CVA nonverbal. Daughter reports patient becoming progressively weaker and more fatigued over the past one-week. Patient is currently on hospice due to CVA. Nurse noted patient heart rate being in the 40s today. Patient does have a pacemaker. In the emergency department her heart rate has been fluctuating from 40s to low 100s. 05/10: Patient remains at her baseline, daughter at bedside concern that hospice patient's C was noticing her heart rate dropped from 100s to 40s. There was apparently assessment of pacemaker done in the ER, currently if report is missing. We will do another assessment to get report, we will consult Cardiology to complete evaluation. We will order COVID/flu, TSH. Reassess tomorrow morning, continue diet puree. 05/11: [employer] rep, at bedside, has optimized the pacemaker settings, capture is much improved. It is appearing lead malfunction is possibly less likely, and perhaps the pacemaker needed optimization only. We will monitor for another 24 hours for any bradycardia or pacemaker dysfunction. If stable patient should be stable to go back to hospice as family plans. Today we will give 250 cc bolus as patient has been NPO, restart pureed diet, continue 50 cc LR 50 cc/hour for total 1 L. 05/12: Another interrogation was done today a.m., results showing again concern for lead dislodgement of pacemaker,. Patient family wants 2nd opinion, cardiology Dr. JIN on the case now. Plan for possible lead change/pacemaker change tomorrow a.m.. 05/16: Patient unable to get lead change on Sunday 05/13. Plan for leadless pacemaker today. We will follow up with Cardiology. 05/17: Patient heart rate stable, had lead less pacemaker inserted yesterday groin access, patient doing well giving thumbs up for ready to go home. On tele no abdominal concerning rhythms. Patient's family wants patient to return to hospice. We will honor family's wishes.. , cardiology has followed up, yesterday patient had insertion of micra implantation. Cardiology has evaluated this morning and interrogation functioning normal. Discharge home back to hospice. 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 History of CVA Nonverbal Bed ridden Plan: - resume hospice, family prefers prior hospice agency to continue care. 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 History of CVA Nonverbal Bed ridden Discharge Disposition: Hospice - Home Discharge Instruct/Medications Scheduled Alendronate Sodium (Alendronate Sodium), 10 MG PO DAILY, (Reported) Buspirone Hcl (Buspirone Hcl), 5 MG PO DAILY, (Reported) Levothyroxine Sodium (Levothyroxine Sodium), 100 MCG PO QAM, (Reported) Pravastatin Sodium (Pravachol Tablet), 40 MG PO DAILY, (Reported) Senna (Senokot), 8.6 MG PO DAILY, (Reported) Temazepam (Temazepam), 15 MG PO HS, (Reported) Discharge Statement: "Patient was advised to return to the ER or call 911 if any headaches, dizziness, shortness of breath, chest pain, abdominal pain, bleeding, fevers, or worsening of medical condition. Patient was counseled about treatment plan, medications, possible side effects, patientverbalized understanding. All questions were answered to the best of my ability. This discharge took greater then 30 minutes in planning, reviewing documentation, counseling the patient, and discussing with other team members." ASSESSMENT ASSESSMENT Assessment Date of Service: May 17, 2025 Billing Provider: MIHAELA MORRIS MD Common Visit Codes: 64292-TVF/OBS DISCH DAY >30min MIHAELA MORRIS MD May 17, 2025 10:33
[2025-05-17 12:53] VITALS: BP 124/82; PULSE 76; RESP 18; TEMP 98.7; O2SAT 97
[2025-05-17 13:00] VITALS: BP 109/66; PULSE 90; RESP 18; TEMP 98; O2SAT 95
--- NOTE | 2025-05-17 13:26 | DVHOP ---
DATE OF SURGERY: 05/16/2025 PROCEDURE TO BE PERFORMED: Implantation of Micra permanent pacemaker with conscious sedation, venography. REASON FOR THE MICRA: The patient has no access from the left subclavian. She has a previous permanent pacemaker implanted. The leads are nonfunctional. Now, they have been titrated down to not even sensing. The pacemaker has been turned off for all practical purposes and a new leadless pacemaker needs to be accessed. The patient also was recently on hospice as a hospice wanted to do two invasive procedures such as lead extraction or angioplasty of the subclavian would carry unrealistic morbidity and mortality. DESCRIPTION OF PROCEDURE: The patient was prepped and draped under sterile conditions. Xylocaine 1% used to anesthetize the right groin. Using a Cook needle, right femoral vein was engaged with Seldinger technique. A 6-Romanian sheath was introduced in the right femoral vein. Then, systematically, the vein was dilated, but prior to dilation, two Perclose devices were deployed. I finally dilated with 9-Romanian, 16-Romanian, 18-Romanian, and finally a 24-Romanian sheath was then inserted into the right subclavian inferior vena cava into the right atrium. The Micra delivery device was then introduced and appropriately positioned in the right ventricular septum. It was then deployed. Threshold parameters were obtained. Then, once we attained there is appropriate positioning and appropriate sensing, the lead was then released. The sheath and the delivery system was then removed. There were no complications. The patient tolerated the procedure. The right femoral venotomy site was then closed using Perclose device. RESULTS: The patient had implantation of a Micra leadless system Medtronic MRI-compatible, model number [id number], serial number [id number]. Threshold parameters: Right ventricle R-wave amplitude of 3.8 millivolts, pacing impedance of 600 ohms, pacing threshold of 0.63 volts at 0.25 milliseconds. Thus, the patient had successful implantation of Medtronic leadless Micra permanent pacemaker. Ben Webber MD SA/NAATLIA/MEREDITH TID: [id number] RECEIPT: [id number]
== END 2025-05-17 15:45 | disposition hospice, home (50) | DRG 229 ==
LOC: EEVIPCON 12:41 → ER 12:41 → OVERFLOW 19:51 → TELE-WESTW 05-10 14:06
PROVIDERS: ADMIT Student in an Organized Health Care Education/Training Program; ATTEND Student in an Organized Health Care Education/Training Program
PROC: 05JY3ZZ Inspection of Upper Vein, Percutaneous Approach (ICD-10-PCS; 2025-05-13)
PROC: 02HK3NZ Insertion of Intracardiac Pacemaker into Right Ventricle, Percutaneous Approach (ICD-10-PCS; principal; 2025-05-16)
DX: T82.118A Breakdown (mechanical) of other cardiac electronic device, initial encounter (principal); Z00.6 Encounter for examination for normal comparison and control in clinical research program; E87.6 Hypokalemia; E05.80 Other thyrotoxicosis without thyrotoxic crisis or storm; Z20.822 Contact with and (suspected) exposure to COVID-19; Z74.01 Bed confinement status; Z51.5 Encounter for palliative care; Z86.73 Personal history of transient ischemic attack (TIA), and cerebral infarction without residual deficits; Z95.0 Presence of cardiac pacemaker; Y84.8 Other medical procedures as the cause of abnormal reaction of the patient, or of later complication, without mention of misadventure at the time of the procedure; Y92.89 Other specified places as the place of occurrence of the external cause
CPT/HCPCS: 33274; 36415; 71045; 80048; 80053; 81001; 83880; 84132; 84439; 84443; 84484; 85025; 85610; 85730; 86850; 86900; 86901; 87426; 87804; 92610; 93005; 93306; 99152; G0378; J2250; J3480; Q9967